=== PATIENT | male | born 1995 | race Caucasian/White ===

== ENCOUNTER → 2025-01-17 | Day surgery (SDC) | payer MEDICAID ==
[~2025-01-17] VITALS: Ht 170.2 cm; Wt 112.0 kg
[~2025-01-17] MED LIST: ARIP882S2 IM; BUPIVACAINE HCL/PF 0.5% (5MG/ML) 10ML ONE; ESCI20TA PO; FAMOTIDINE 20MG/2ML VIAL IV ONE; GLYCOPYRROLATE 0.2 MG/ML 2ML VIAL ONE; HYDROMORPHONE HCL/PF 1MG/ML INJ IV PRN; KETOROLAC 30MG/ML VIAL ONE; LACTATED RINGERS 1,000 ML IV SCH; NALT50TA6 PO; NEOSTIGMINE METHYLSULFATE 1MG/ML 10 ML VIAL ONE; ONDANSETRON HCL 4MG/2ML INJ IV PRN; ONDANSETRON HCL 4MG/2ML INJ ONE; PROPOFOL 200MG/20ML VIAL IV ONE; ROCURONIUM BROMIDE 10MG/ML VIAL 5ML IV ONE; SKIN ADHESIVE 0.7 GM EA TOP ONE; SUGAMMADEX SODIUM 200MG/2ML VIAL IV ONE
[2025-01-17] MEDS: ACETAMINOPHEN 1000MG/100ML 100 ML IV NR (11:41)
[2025-01-17] MEDS: BUPIVACAINE HCL 0.5% 175 ML in ON-Q PM013 DRUG DELIV DEVICE 1 EA IR NR (11:49)
== END | disposition home or self-care (01) ==
LOC: OR 07:39
PROVIDERS: ATTEND Surgery
DX: K40.90 Unilateral inguinal hernia, without obstruction or gangrene, not specified as recurrent (principal); Z79.899 Other long term (current) drug therapy; Z98.890 Other specified postprocedural states
CPT/HCPCS: 49505; J2710; J0665; J3490 ×4; J1885; J2405; J2704; C1781; J0131